=== PATIENT | male | born 1980 | race Caucasian/White ===

== ENCOUNTER 2017-02-03 18:48 | Emergency (ER) | payer BC ==
[2017-02-03] MEDS ORDERED: Sodium Chloride 0.9% 2.5 ML Syringe FLUSH PRN (19:10)
[2017-02-03] MEDS ORDERED: Sodium Chloride 0.9% 10 ML Syringe FLUSH PRN (19:10)
--- NOTE | 2017-02-03 19:13 | EDM.PDOC ---
ED HPI GENERAL MEDICAL PROBLEM - General Chief Complaint: Abdominal Pain Stated Complaint: ABDOMINAL PAIN Time Seen by Provider: 02/03/17 19:02 Source of Information: Reports: Patient History Limitations: Reports: No Limitations - History of Present Illness INITIAL COMMENTS - FREE TEXT/NARRATIVE: HISTORY AND PHYSICAL: []37-year-old male presenting with abdominal pain just right of the umbilicus History of Present Illness: []Pain to abdomen awakened him this morning from sleep and has not subsided He also complains of right scrotal pain for the last week that has been constant He does not notice these had any blood in his urine or in his ejaculation Review of Systems: As per history of present illness and below otherwise all systems reviewed and negative. Past medical history: As per history of present illness and as reviewed below otherwise noncontributory. Surgical history: As per history of present illness and as reviewed below otherwise noncontributory. Social history: No reported history of drug or alcohol abuse. Family history: As per history of present illness and as reviewed below otherwise noncontributory. Physical exam: Alert and oriented male who is quite uncomfortable all his directions well pain increased with stretching his arm up. HEENT: Atraumatic, normocehpalic, pupils reactive, negative for conjunctival pallor or scleral icterus, mucous membranes moist, throat clear, neck supple, nontender, trachea midline. Lungs: Clear to auscultation, breath sounds equal bilaterally, chest non tender. Heart: S1S2, regular, negative for clicks, rubs, or JVD. Abdomen: Soft, nondistended, tender. 2 mid abdomen mild rebound Negative for masses or hepatossplenmegaly. Negative for costovertebral tenderness. Pelvis: Stable nontender. Genitourinary: No exudate noted from the penis, definite pain with palpation to the scrotal area on the right Rectal: Deferred Extremities: Atraumatic, negative for cords or calf pain. Neurovascular unremarkable. Neuro: Awake, alert, oriented. Cranial nerves II through XII unremarkable. Cerebellum unremarkable. Motor and sensory unremarkable throughout. Exam nonfocal. Discussed case with patient and his /Grable to start on antibiotic therapy Diagnostics: [CBC, CMP, UA, normal CT] Therapeutics: []Zofran morphine/ Impression: [Abdominal pain Scrotal pain Questionable early epididymitis] Fatty liver disease Cyst on his kidney Plan: [Amoxicillin Referral to Dr. Stewart] Definitive disposition and diagnosis as appropriate pending reevaluation and review of above. Onset: Sudden Duration: Hour(s): Location: Reports: Abdomen, Other (Right scrotal pain) Quality: Reports: Ache, Stabbing Severity: Moderate Improves with: Reports: None Worsens with: Reports: Movement abdominal pain Pain Score (Numeric/FACES): 7 - Related Data Allergies Allergy/AdvReac Type Severity Reaction Status Date / Time phenobarbital Allergy Other Verified 02/03/17 18:52 Home Meds: Home Meds . [No Known Home Meds] 02/03/17 [History] Past Medical History HEENT History: Reports: None Cardiovascular History: Reports: Heart Murmur Respiratory History: Reports: None Gastrointestinal History: Reports: None Genitourinary History: Reports: None Musculoskeletal History: Reports: None Neurological History: Reports: Seizure Other Neuro History: Seizure during childhood Psychiatric History: Reports: None Endocrine/Metabolic History: Reports: None Hematologic History: Reports: None Immunologic History: Reports: None Oncologic (Cancer) History: Reports: None Dermatologic History: Reports: None - Infectious Disease History Infectious Disease History: Reports: None - Past Surgical History Head Surgeries/Procedures: Reports: None Social & Family History - Tobacco Use Smoking Status *Q: Never Smoker - Caffeine Use Caffeine Use: Reports: Coffee, Energy Drinks, Soda - Recreational Drug Use Recreational Drug Use: No ED ROS GENERAL - Review of Systems Review Of Systems: ROS reveals no pertinent complaints other than HPI. ED EXAM, RENAL/ - Physical Exam Exam: See Below (see dictation) Course - Vital Signs Last Recorded V/S: Last Vital Signs Temp 36.1 C 02/03/17 18:53 Pulse 83 02/03/17 18:53 Resp 18 02/03/17 18:53 BP 158/101 H 02/03/17 18:53 Pulse Ox 99 02/03/17 18:53 - Orders/Labs/Meds Orders: Active Orders 24 hr Category Date Time Status Abdomen Pelvis w Cont [CT] Stat Exams 02/03/17 19:16 Taken Scrotal Duplex Ltd [US] Stat Exams 02/03/17 19:10 Taken Scrotum and Contents [US] Routine Exams 02/03/17 19:25 Taken Sodium Chloride 0.9% [Saline Flush] Med 02/03/17 19:10 Active 10 ml FLUSH ASDIRECTED PRN Sodium Chloride 0.9% [Saline Flush] Med 02/03/17 19:10 Active 2.5 ml FLUSH ASDIRECTED PRN Saline Lock Insert [OM.PC] Stat Oth 02/03/17 19:10 Ordered Medication Orders Sodium Chloride (Saline Flush) 10 ml FLUSH ASDIRECTED PRN PRN Reason: Keep Vein Open Last Admin: 02/03/17 19:24 Dose: 10 ml Sodium Chloride (Saline Flush) 2.5 ml FLUSH ASDIRECTED PRN PRN Reason: Keep Vein Open Last Admin: 02/03/17 19:29 Dose: 2.5 ml Labs: Laboratory Tests 02/03/17 02/03/17 02/03/17 Range/Units 19:05 19:05 21:03 WBC 7.81 (4.0-11.0) K/uL RBC 5.74 (4.50-5.90) M/uL Hgb 17.2 H (13.0-17.0) g/dL Hct 48.8 (38.0-50.0) % MCV 85.0 (80.0-98.0) fL MCH 30.0 (27.0-32.0) pg MCHC 35.2 (31.0-37.0) g/dL RDW Std Deviation 40.1 (28.0-62.0) fl RDW Coeff of Jason 13 (11.0-15.0) % Plt Count 256 (150-400) K/uL MPV 11.30 (7.40-12.00) fL Neut % (Auto) 52.4 (48.0-80.0) % Lymph % (Auto) 36.0 (16.0-40.0) % [place] % (Auto) 9.2 (0.0-15.0) % Eos % (Auto) 1.5 (0.0-7.0) % Baso % (Auto) 0.9 (0.0-1.5) % Neut # (Auto) 4.1 (1.4-5.7) K/uL Lymph # (Auto) 2.8 H (0.6-2.4) K/uL [place] # (Auto) 0.7 (0.0-0.8) K/uL Eos # (Auto) 0.1 (0.0-0.7) K/uL Baso # (Auto) 0.1 (0.0-0.1) K/uL Nucleated RBC % 0.0 /100WBC Nucleated RBCs # 0 K/uL Sodium 141 (136-146) mmol/L Potassium 3.7 (3.5-5.1) mmol/L Chloride 107 (98-110) mmol/L Carbon Dioxide 25 (21-31) mmol/L BUN 16 (6.0-23.0) mg/dL Creatinine 1.3 (0.6-1.5) mg/dL Est Cr Clr Drug Dosing 74.15 mL/min Estimated GFR (MDRD) > 60.0 ml/min Glucose 99 (60-110) mg/dL Calcium 9.4 (8.8-10.8) mg/dL Total Bilirubin 0.3 (0.1-1.5) mg/dL AST 19 (5-40) IU/L ALT 39 (8-54) IU/L Alkaline Phosphatase 101 (40-150) Total Protein 7.5 (6.0-8.0) g/dL Albumin 4.5 (3.5-5.0) g/dL Globulin 3.0 (2.0-3.5) g/dL Albumin/Globulin Ratio 1.5 (1.3-2.8) Urine Color YELLOW Urine Appearance CLEAR Urine pH 5.0 (5.0-8.0) Ur Specific [place] <= 1.005 (1.001-1.035) Urine Protein NEGATIVE (NEGATIVE) mg/dL Urine Glucose (UA) NEGATIVE (NEGATIVE) mg/dL Urine Ketones NEGATIVE (NEGATIVE) mg/dL Urine Occult Blood NEGATIVE (NEGATIVE) Urine Nitrite NEGATIVE (NEGATIVE) Urine Bilirubin NEGATIVE (NEGATIVE) Urine Urobilinogen 0.2 (<2.0) EU/dL Ur Leukocyte Esterase NEGATIVE (NEGATIVE) Urine RBC 0-1 (0-2/HPF) Urine WBC 0-2 (0-5/HPF) Ur Epithelial Cells RARE (NONE-FEW) Urine Bacteria RARE (NEGATIVE) Meds: Medications Generic Name Dose Route Start Last Admin Trade Name Freq PRN Reason Stop Dose Admin Sodium Chloride 10 ml 02/03/17 19:10 02/03/17 19:24 Saline Flush FLUSH 10 ml ASDIRECTED PRN Administration Keep Vein Open Sodium Chloride 2.5 ml 02/03/17 19:10 02/03/17 19:29 Saline Flush FLUSH 2.5 ml ASDIRECTED PRN Administration Keep Vein Open Discontinued Medications Generic Name Dose Route Start Last Admin Trade Name Amarilys PRN Reason Stop Dose Admin Sodium Chloride 1,000 mls @ 999 mls/hr 02/03/17 19:16 02/03/17 19:24 Normal Saline IV 02/03/17 20:16 999 mls/hr STAT ONE Administration Iopamidol 100 ml 02/03/17 20:02 02/03/17 20:26 Isovue-370 (76%) IVPUSH 02/03/17 20:03 100 ml ONETIME STA Administration Morphine Sulfate 2 mg 02/03/17 19:14 02/03/17 19:27 Morphine IV 02/03/17 19:15 2 mg ONETIME ONE Administration Ondansetron HCl 4 mg 02/03/17 19:14 02/03/17 19:26 Zofran IVPUSH 02/03/17 19:15 4 mg ONETIME ONE Administration Departure - Departure Time of Disposition: 21:36 Disposition: Home, Self-Care 01 Condition: Good Clinical Impression: Scrotal pain Abdominal pain Qualifiers: Abdominal location: periumbilical Qualified Code(s): R10.33 - Periumbilical pain - Discharge Information Instructions: Abdominal Pain, Adult, [id number] Forms: ED Department Discharge Additional Instructions: The following information is given to patients seen in the emergency department who are being discharged to home. This information is to outline your options for follow-up care. We provide all patients seen in our emergency department with a follow-up referral. The need for follow-up, as well as the timing and circumstances, are variable depending upon the specifics of your emergency department visit. If you don't have a primary care physician on staff, we will provide you with a referral. We always advise you to contact your personal physician following an emergency department visit to inform them of the circumstance of the visit and for follow-up with them and/or the need for any referrals to a consulting specialist. The emergency department will also refer you to a specialist when appropriate. This referral assures that you have the opportunity for followup care with a specialist. All of these measure are taken in an effort to provide you with optimal care, which includes your followup. Under all circumstances we always encourage you to contact your private physician who remains a resource for coordinating your care. When calling for followup care, please make the office aware that this follow-up is from your recent emergency room visit. If for any reason you are refused follow-up, please contact the [facility] emergency department at and asked to speak to the emergency department charge nurse. Prescriptions for amoxicillin Follow-up with Dr. Sanchez next week please call for an appointment tomorrow Consider referral to Dr. Terry ALLRED [facility] [address] [place] [id number] - My Orders Last 24 Hours: My Active Orders 02/03/17 19:10 Scrotal Duplex Ltd [US] Stat Sodium Chloride 0.9% [Saline Flush] 10 ml FLUSH ASDIRECTED PRN Sodium Chloride 0.9% [Saline Flush] 2.5 ml FLUSH ASDIRECTED PRN Saline Lock Insert [OM.PC] Stat 02/03/17 19:16 Abdomen Pelvis w Cont [CT] Stat - Assessment/Plan Last 24 Hours: My Active Orders 02/03/17 19:10 Scrotal Duplex Ltd [US] Stat Sodium Chloride 0.9% [Saline Flush] 10 ml FLUSH ASDIRECTED PRN Sodium Chloride 0.9% [Saline Flush] 2.5 ml FLUSH ASDIRECTED PRN Saline Lock Insert [OM.PC] Stat 02/03/17 19:16 Abdomen Pelvis w Cont [CT] Stat
[2017-02-03] MEDS ORDERED: Ondansetron 4 MG/2 ML SDV IVPUSH ONE (19:14)
[2017-02-03] MEDS ORDERED: Morphine 10 MG/ML Syringe IV ONE (19:14)
[2017-02-03] MEDS ORDERED: Sodium Chloride 0.9% 1,000 ML IV ONE (19:16)
[2017-02-03 19:36] LABS: CHLORIDE,CL 107 mmol/L (98-110); SODIUM,NA 141 mmol/L (136-146)
[2017-02-03] MEDS ORDERED: Iopamidol 755 Mg/ML 100 ML Bottle IVPUSH STA (20:02)
[2017-02-03] MEDS ORDERED: Amoxicillin 500 MG Cap PO ONE (21:43)
[2017-02-04 01:52] VITALS: BP 155/94
--- NOTE | 2017-02-04 12:45 | US ---
EXAM DATE: 02/03/17 PATIENT'S AGE: 37 Patient: MARIN BAILEY Facility: [place], [place] Site . Site : 1980 Study: US Testicle Right [id number]/16/2017 7:54:06 PM Ordering Physician: Doctor Guzman Final Report: Indication: Right-sided testicular pain for 1 week. Findings: Right epididymis appears normal. No hyperemia on color Doppler interrogation. Testicle is 4 x 2 x 3 cm with uniform echotexture. No mass or cyst. Normal color and spectral Doppler arterial and venous blood flow. No inguinal hernia is evident. Left epididymal head is normal. Testicular size is 4 x 2 x 3 cm with uniform echotexture. Normal color and spectral Doppler arterial and venous blood flow. No evident hyperemia of either testicle. Impression: Negative sonographic evaluation of the testicles and scrotal contents. Dictated by Nolan Barry MD @ Feb 03 2017 8:08PM (Electronic Signature) Report Signed by Proxy. MOY
--- NOTE | 2017-02-04 12:46 | US ---
EXAM DATE: 02/03/17 PATIENT'S AGE: 37 Patient: MARIN BAILEY Facility: [place], [place] Site . Site : 1980 Study: US Testicle Right [id number]/16/2017 7:54:06 PM Ordering Physician: Doctor Guzman Final Report: Indication: Right-sided testicular pain for 1 week. Findings: Right epididymis appears normal. No hyperemia on color Doppler interrogation. Testicle is 4 x 2 x 3 cm with uniform echotexture. No mass or cyst. Normal color and spectral Doppler arterial and venous blood flow. No inguinal hernia is evident. Left epididymal head is normal. Testicular size is 4 x 2 x 3 cm with uniform echotexture. Normal color and spectral Doppler arterial and venous blood flow. No evident hyperemia of either testicle. Impression: Negative sonographic evaluation of the testicles and scrotal contents. Dictated by Nolan Barry MD @ Feb 03 2017 8:08PM (Electronic Signature) Report Signed by Proxy. MOY
--- NOTE | 2017-02-04 12:48 | CT ---
EXAM DATE: 02/03/17 PATIENT'S AGE: 37 Patient: MARIN BAILEY Facility: [place], [place] Site . Site : 1980 Study: CT Abdomen/Pelvis [id number]/16/2017 8:23:30 PM Ordering Physician: Doctor Guzman Final Report: INDICATION: Mid abdominal pain. TECHNIQUE: CT abdomen and pelvis acquired with IV contrast. COMPARISON: None FINDINGS: Lower chest: Unremarkable. Liver: A couple of scattered too small the characterize low-attenuation foci right liver are likely cysts. Mild diffuse low-attenuation steatosis. Spleen: Unremarkable. Pancreas: Unremarkable. Gallbladder and bile ducts: Unremarkable. Kidneys: Unremarkable. Adrenal glands: Unremarkable. GI tract: Unremarkable. Appendix is normal. Vascular structures: Negative. No sign of aneurysm. Lymph nodes: Unremarkable. Miscellaneous: Unremarkable. No free air or significant free fluid. Pelvic Organs: Unremarkable. Bones: Unremarkable for age. IMPRESSION: No source for abdominal pain evident. Mild hepatic steatosis. Probable cyst right liver. Please note that all CT scans at this facility use dose modulation, iterative reconstruction, and/or weight-based dosing when appropriate to reduce radiation dose to as low as reasonably achievable. Dictated by Nolan Barry MD @ Feb 03 2017 8:29PM (Electronic Signature) Report Signed by Proxy. MOY
== END 2017-02-03 22:05 | disposition home or self-care (01) ==
LOC: MW.ED 18:48
DX: N28.1 Cyst of kidney, acquired (principal); K76.0 Fatty (change of) liver, not elsewhere classified; N50.82 Scrotal pain
CPT/HCPCS: 74177; 76870; 80053; 81001; 85025; 93976; 96361; 96374; 96375; 99284; A9270; J2270; J2405; J7040; Q9967

== ENCOUNTER 2023-12-23 06:42 | Day surgery (SDC) | payer BC ==
[~2023-12-23 06:42] MED LIST: ceFAZolin 2 GM in Sodium Chloride 0.9% 50 ML IV ONE
[2023-12-23] MEDS ORDERED: Ropivacaine 0.5% 5 MG/ML 30 ML SDV ONE (06:43)
[2023-12-23] MEDS ORDERED: propofoL 100 ML ONE (06:44)
[2023-12-23] MEDS ORDERED: Scopalamine 1mg/3day Transdermal Patch ONE (06:45)
[2023-12-23] MEDS ORDERED: dexmedeTOMIDine HCl 200 MCG/2 ML SDV ONE (06:47)
[2023-12-23] MEDS ORDERED: Water For Injection, Sterile 20 ML ONE (06:48)
[2023-12-23] MEDS ORDERED: Rocuronium Bromide 50 MG/5 ML Syringe ONE (06:50)
[2023-12-23] MEDS ORDERED: Morphine 10 MG/ML SDV ONE (06:50)
[2023-12-23] MEDS ORDERED: Magnesium Sulfate (4.06 MEQ/ML) 5 GM/10 ML SDV ONE (06:50)
[2023-12-23] MEDS ORDERED: Ondansetron 4 MG/2 ML SDV ONE ×2 (06:50)
[2023-12-23] MEDS ORDERED: Lidocaine 2% 5 ML SDV ONE (06:50)
[2023-12-23] MEDS ORDERED: Lidocaine 2% 11 ML Jelly Filled Syringe ONE (06:50)
[2023-12-23] MEDS ORDERED: Dexamethasone 4 MG/ML 5 ML MDV ONE (06:57)
[2023-12-23] MEDS ORDERED: Ketorolac 30 MG/ML SDV ONE (06:58)
[2023-12-23] MEDS ORDERED: fentaNYL 100 MCG/2 ML SDV ONE (06:58)
[2023-12-23] MEDS ORDERED: Ondansetron 4 MG/2 ML SDV IVPUSH PRN (07:01)
[2023-12-23] MEDS ORDERED: Naloxone 0.4 MG/ML SDV IVPUSH PRN (07:01)
[2023-12-23] MEDS ORDERED: Metoclopramide 10 MG/2 ML SDV IVPUSH PRN (07:01)
[2023-12-23] MEDS ORDERED: Morphine 2 MG/ML SYRINGE IVPUSH PRN (07:01)
[2023-12-23] MEDS ORDERED: HYDROmorphone 1 MG/ML Syringe IVPUSH PRN (07:01)
[2023-12-23] MEDS ORDERED: Albuterol 0.083% 2.5 MG/3 ML Neb Soln NEB PRN (07:01)
[2023-12-23] MEDS ORDERED: fentaNYL 50 MCG/ML SDV IVPUSH PRN (07:01)
[2023-12-23] MEDS ORDERED: droPERidol 5 MG/2 ML SDV IVPUSH PRN (07:01)
[2023-12-23] MEDS ORDERED: Sugammadex Sodium 200 MG/2 ML VIAL IV ONE (07:04)
[2023-12-23] MEDS ORDERED: Bupivacaine 0.5% 30 ML SDV ONE (07:12)
[2023-12-23] MEDS: Lactated Ringers 1,000 ML IV SCH (07:27)
[2023-12-23] MEDS ORDERED: ceFAZolin 2 GM Vial ONE (07:32)
[2023-12-23] MEDS ORDERED: propofoL 50 ML ONE (08:27)
[2023-12-23] MEDS ORDERED: Acetaminophen/HYDROcodone 325-5 MG Tab PO PRN (08:53)
[2023-12-23] MEDS ORDERED: Lactated Ringers 1,000 ML IV SCH (09:00)
[2023-12-23 09:10] VITALS: PULSE 61
[2023-12-23 11:28] VITALS: BP 126/72
== END 2023-12-23 10:20 | disposition home or self-care (01) ==
LOC: MW.SDS 06:42
PROVIDERS: ATTEND Surgery
DX: K42.0 Umbilical hernia with obstruction, without gangrene (principal); E78.00 Pure hypercholesterolemia, unspecified; K42.9 Umbilical hernia without obstruction or gangrene; I10 Essential (primary) hypertension; E66.9 Obesity, unspecified; Z68.38 Body mass index [BMI] 38.0-38.9, adult; Z79.899 Other long term (current) drug therapy; Z88.8 Allergy status to other drugs, medicaments and biological substances
CPT/HCPCS: 49592; 64488; A9270; J0131; J0665; J0690; J1100; J1885; J2270; J2405; J2704; J2795; J3010; J3475; J3490; J7120